=== PATIENT | female | born 1990 | race Caucasian/White ===

== ENCOUNTER 2022-06-20 18:52 | Emergency (ER) | payer BC, MEDICAID, SELFPAY ==
[2022-06-20 19:01] VITALS: BP 97/59; PULSE 95; RESP 16; TEMP 38.8; O2SAT 100; BMI 24.0
[2022-06-20 21:03] VITALS: BP 93/51; PULSE 78; RESP 16; O2SAT 98
--- NOTE | 2022-06-20 21:07 | EX.ED.DYSGE1 ---
HPI History of Present Illness Chief Complaint: Fever Informant: patient Narrative Narrative: Patient's stated that she started to feel feverish last evening. But this morning she has been hot and cold. She has myalgias. She has sore throat congestion. She has a bit of a headache. She has had nausea and vomiting but no abdominal pain. No urinary symptoms. She does not know if she has been exposed to anyone who is ill. She is overall healthy. PFSH PFSH Medical History no medical history Home Medications ondansetron 4 mg disintegrating tablet 4 mg PO Q8H PRN nausea and vomiting #10 tabs 06/20/22 [Rx Last Taken Unknown] Allergy/AdvReac Type Severity Reaction Status Date / Time No Known Allergies Allergy Verified 06/20/22 19:03 Surgical History no surgical history Social History Smoking Status: Never smoker ROS ROS ED Constitutional Constitutional ED: Reports chills and subjective Eyes Eyes: Denies change in vision ENT ENT ED: Reports rhinorrhea and sore throat; Denies ear pain Cardiovascular Cardiovascular: Denies chest pain, palpitations or racing heartbeat Respiratory/Chest Respiratory/Chest: Reports cough; Denies dyspnea or sputum Gastrointestinal Gastrointestinal: Reports nausea and vomiting; Denies abdominal pain or diarrhea Genitourinary Genitourinary ED: Denies dysuria or hematuria Musculoskeletal Musculoskeletal: Reports myalgias Integumentary Denies rash Neurologic Neurologic: Reports headache(s); Denies paresthesias or weakness Endocrine Endocrinology: Denies polydipsia or polyuria Allergic/Immunologic Allergic/Immunologic ED: Denies urticaria EXAM Physical Exam Const Vital Signs: 06/20/22 19:01 06/20/22 21:03 06/20/22 21:03 Temperature 101.8 F H Temperature Source Oral Pulse Rate 95 78 Respiratory Rate 16 16 Respiratory Effort Normal Respiratory Pattern Normal Blood Pressure 97/59 L 93/51 L Blood Pressure Mean 71 65 Pulse Ox 100 98 Oxygen Delivery Method Room Air Positive well nourished and well developed General Appearance ED: well developed HEENT Reports moist mucous membranes; Denies dry mucous membranes Mouth ED: No dry mucous membranes Mouth: No dry mucous membranes Eyes EOMs intact bilaterally General Eye ED: Negative for pale conjunctiva or scleral icterus Neck no lymphadenopathy Neck Narrative: No meningismus. No lymphadenopathy. Chest Wall inspection of chest normal Resp normal respiratory effort and clear to auscultation bilaterally Resp Narrative: Patient states she has been coughing. But her lungs sound clear at this time. She is not coughing while I am in the room. Auscultation: Negative for rales, rhonchi or wheezes Cardio regular rate and regular rhythm GI normal to inspection, nondistended, normoactive bowel sounds Palpation: soft; Negative for tender or guarding Back/Spine no CVA tenderness Extremity normal to inspection General Extremety ED: Negative for edema or tenderness General Extremity: Negative for edema Neuro Sensorium / Orientation: alert; Negative for orientation impaired, lethargic or stuporous Psych mental status grossly normal Skin no rashes or lesions noted MDM MDM MDM Narrative Medical decision making narrative: Patient preferred not having IV fluids. Her mucous membranes are still moist. Heart rate is about 80. I do not think she needs this. I will get her meds for the fever and get Zofran for nausea. We will check COVID. Her symptoms and exam are overall consistent with viral syndrome. Patient's COVID is positive. She is feeling a bit better after the Zofran. We will recheck her temperature. Even if she takes Motrin or Tylenol her temperature may not come down to normal. She is not hypoxic. We will get her home with instructions. We discussed reasons to return. Patient has no high risk illness that would put her in the need for Paxlovid. Lab Data Attestation: I reviewed the patient's lab results. Discharge Plan Triage Chief Complaint: Fever ED Provider: Jack Rea Dx/Rx/DC Orders Clinical Impression: COVID, Nausea and vomiting Instructions: Coronavirus Disease 2019 (COVID-19): Caring for Yourself or Others Prescriptions: New ondansetron 4 mg tablet,disintegrating 4 mg PO Q8H PRN (Reason: nausea and vomiting) Qty: 10 0RF Primary Care Provider: Care Physician,No Primary Referrals: Mau Le MD [Med Staff - Junior Assistant Manager] - 1 Week if not improving Care Physician,No Primary [Primary Care Provider] - Disposition Disposition: Home, Self Care
[2022-06-20] MEDS: Ondansetron ODT 4 MG Tablet PO (21:18)
[2022-06-20] MEDS: Ibuprofen 200 MG Tablet 400 MG PO (21:18)
[2022-06-20 22:44] VITALS: PULSE 87; RESP 16; O2SAT 99
== END 2022-06-20 22:44 | disposition home or self-care (01) ==
PROVIDERS: Emergency Provider Emergency Medicine; Visit Provider Emergency Medicine
DX: U07.1 COVID-19 (principal); R11.2 Nausea with vomiting, unspecified
CPT/HCPCS: 87428; 99283

== ENCOUNTER 2022-07-29 07:11 | Day surgery (SDC) | payer BC, MEDICAID, SELFPAY ==
--- NOTE | 2022-07-14 11:05 | PCM.HP.BLA ---
History and Physical Date of Admission: 07/14/22 HPI: The patient is a 31 year old female presenting for pre-operative visit. She is scheduled for hysteroscopy, polypectomy, for endocervical polyp on 07/29/2022. Procedure discussed along with risks, benefits and complications. Other alternatives discussed for management. Consent form signed? Yes. ? ? PAST MEDICAL HISTORY PAST MEDICAL HISTORY Diagnosis Date ? Anxiety ? ? Vaso vagal episode ? ? ? PAST SURGICAL HISTORY PAST SURGICAL HISTORY Procedure Laterality Date ? MOUTH SURGERY HX ? ? ? VAGINOSCOPY ? ? ? early 20's - benign ? ? ? CURRENT MEDICATIONS No current outpatient medications on file. ? No current facility-administered medications for this visit. ? ? ALLERGIES: Lidocaine and Novacaine [Procaine] ? PERSONAL HISTORY: SOCIAL HISTORY Social History ? Tobacco Use ? Smoking status: Never ? Smokeless tobacco: Never Vaping Use ? Vaping Use: Never used Substance Use Topics ? Alcohol use: Yes ? ? Comment: social ? Drug use: Never ? FAMILY HISTORY: FAMILY HISTORY FAMILY HISTORY Problem Relation Age of Onset ? No Known Problems Mother ? ? Hypertension Father ? ? Hyperlipidemia Father ? ? Obesity Father ? ? Diabetes Brother ? ? No Known Problems Brother ? ? No Known Problems Brother ? ? Hypertension Paternal Grandmother ? ? Hypertension Paternal Grandfather ? ? ? REVIEW OF SYMPTOMS: GENERAL: denies fevers or chills ENDOCRINOLOGY: has not been on steroids Cardiology : denies palpitations or chest pain Respiratory: denies SOB or cough Hematology: denies history of prolonged bleeding or easy bruising or VTE Allergy: Denies history of personal or family history of allergy to anesthesia ? PHYSICAL EXAMINATION: ? VITALS: Last menstrual period 06/24/2022. ? GENERAL: The patient is well nourished, well hydrated in no acute distress. , The patient is oriented to time, place, and person. NECK: Supple. No lynphadenopathy, normal thyroid, no thyromegaly. LUNGS: Clear to auscultation bilaterally. no wheezes, rhonchi or rales HEART: Regular rate and rhythm, Normal heart sounds, and No murmurs or gallops ? IMPRESSION: AUB, endocervical polyp ? PLAN: The risks/benefits/alternatives and personal involved for the planned hysteroscopy D&C with polyp resection were reviewed with the patient. Her questions were answered to her satisfaction and she desires to proceed. Consent was signed. I reviewed with her postop instructions and expectations. ? ? I have reviewed and updated past medical and surgical history, medications and allergies
[2022-07-29] VITALS (9 sets, daily range): BP systolic 91–110; BP diastolic 48–70; PULSE 69–88; RESP 16–18; TEMP 36.4–37.2; O2SAT 93–100; BMI 23.8
--- NOTE | 2022-07-29 | EMB_PTH ---
PATIENT: UMBERTO MEDRANO LOC: [facility] [place] U#:[id number] AGE/SX: 31/F ROOM: RE07/29/[address]: Dr. Alexandria Mason MD : 1990 BED: DIS: 07/29/2022 SPEC #: [id number] RECD: 07/29/22 12:55 STATUS: KRYSTIAN GUTIERREZ #: [id number] JOHN: 07/29/22 00:[address]: Alexandria Mason DEPT: SURGICAL PATHOLOGY RECD BY: Tony Renee ENTERED: 08/01/22 10:04 SP TYPE: ENDOM BX/C JODIE DR: No Primary Care Phys Tissues: Endometrium, NOS Procedures: Surgery Specimen Level IV HEADER OPERATION: Hysteroscopy, D & C PRE-OP DIAGNOSIS: Abnormal uterine bleeding, endocervical polyp TISSUE SUBMITTED: Endometrial curettings MICROSCOPIC DIAGNOSIS Endometrium, curettings: Mildly disordered proliferative endometrium. Chronic endometritis. Fragments of benign squamous mucosa and endocervical tissue. AM:mariann 08/02/2022 MICROSCOPIC DESCRIPTION Slides are reviewed. GROSS DESCRIPTION Received in fixative is one container labeled with the patient's name and designated endometrial curettings. The specimen consists of multiple irregular fragments of light to dark quiros soft tissue that in aggregate measure 5 x 2 x 0.2 cm. The specimen is totally submitted in two cassettes. / AM:mariann 08/01/2022 TC:3 CPT: 24945
[2022-07-29] MEDS: Lidocaine 2% /Epi 1:100 (20ml) 20 ML VIAL (07:56)
[2022-07-29 08:01] LABS: Internal QC Validated? YES +Cl - CLEAR BKGD; Pregnancy, Urine Negative Negative
[2022-07-29] MEDS: Ketorolac 30 MG/ML Syringe IV (08:16)
[2022-07-29] MEDS: Acetaminophen 500 MG Tablet 1000 MG PO (08:16)
[2022-07-29] MEDS: Lactated Ringers 1,000 ML 15 ML IV (08:19)
[2022-07-29 08:30] LABS: Hematocrit 39.9 % (37-47); Hemoglobin 13.1 g/dL (12.0-15.0); Mean Corp Hgb Conc 32.8 g/dL (32-36); Mean Corpuscular Hgb 29.9 pg (27.0-32.0); Mean Corpuscular Volume 91.1 fL (81-99); Mean Platelet Vol. 10.2 fl (6.2-12.0); Platelet Count 323 K/mm3 (150-450); RBC Distribution Width CV 12.1 % (11.6-14.6); RBC Distribution Width SD 40.3 fl (35.1-43.9); Red Blood Count 4.38 M/mm3 (4.2-5.4); White Blood Count 8.8 K/mm3 (4.4-11.0)
--- NOTE | 2022-07-29 08:49 | DCINST_ITS ---
Discharge Instructions Diet Discharge Diet: No restrictions Activity May resume sexual activity in: 1 week and 2 weeks Lifting Restrictions: none Dressing / Incision Call your doctor if your incision/area has: Sudden Increased Bleeding and Foul Smelling Discharge Call your doctor if you observe: Fever of 101 or Higher and Using more than 1 pad per hour (for 2 hrs in a row) Follow Up Care Please Follow Up With: Alexandria Mason MD When: 2-4 weeks or as needed. Call [phone] to make an appointment or with any concerns. Test Results: Test results from this visit will be discussed in further detail at your follow- up appointment, if applicable. Discharge Plan Admission Primary Reason for Your Visit: Hysteroscopy dilation and curettage Attending Provider: Alexandria Mason Primary Care Provider: Care Physician,Kiarra Primary Discharge Orders/Prescriptions Prescriptions: No Action ondansetron 4 mg tablet,disintegrating 4 mg PO Q8H PRN (Reason: nausea and vomiting) Qty: 10 0RF Referrals / Follow Up: Care Physician,No Primary [Primary Care Provider] - Disposition Disposition (needs filled in before D/C Order can be placed): Home, Self Care
--- NOTE | 2022-07-29 08:51 | PCM.OPRPT ---
Problems Associated Problem List Diagnoses (1) Abnormal uterine bleeding (AUB): (2) Endometrial polyp: Report of Operation Date of Procedure: 07/29/22 Pre-Operative Diagnosis: AUB, endometrial polyp Post-Operative Diagnosis: same Surgery/Procedure Performed:: hysteroscopy D&C w/ polyp resection Description of Surgical Findings:: Normal vagina and vulva, normal endometrial cavity with lush endometrium. No discrete polypoid lesions. Somewhat friable ulcerated area at the endocervix posteriorly. But no discrete polyp when I attempted to grasp the area. Surgeon: Alexandria Mason signaling design engineer: rani su ms Type of Anesthesia: MAC/Supplemental/Local Anesthesiologist: Quentin Enamorado Special Medications: none Specimen's removed: endometrial curettings Drains: none Estimated Blood Loss (mL): 10 Fluids Replaced: 800 Description of Procedure: The patient was taken to the OR where she was prepped and draped in dorsal lithotomy position. The weighted speculum was placed in the vagina and the anterior lip of the cervix was grasped with a single-tooth tenaculum. A paracervical block was administered with 2% Xylocaine with dilute epinephrine solution. The cervix was dilated serially with Hegar dilators. The Symphion hysteroscope was placed into the uterine cavity and the above findings were noted. Bilateral tubal ostia [were] identified. There was lush endometrium. No discrete polyps noted in the endometrial cavity. Small area that is somewhat denuded in the endocervix but no discrete polyp there. The hysteroscope was removed. A gentle sharp curettage was done of the uterine cavity. The instruments were removed from the vagina. The specimen was handed off and sent to pathology. All sponge and needle counts were correct. Vaginal sweep was performed by me. The patient was awakened and taken to the recovery room in stable condition. Hysteroscopic fluid deficit was calculated to be 0 cc Grafts/Implants Used: none Procedure Start Time: :02 Procedure Stop Time: 09:10 Complications none Admit VTE Documentation VTE Present on Admission: No VTE Mechan Device Prophylaxis: SCD's VTE Pharm Prophylaxis ordered?: No Reason prophylaxis not ordered:: Procedure Not Indicated
== END 2022-07-29 12:11 | disposition home or self-care (01) ==
LOC: SDC 07:14 → AC 07:15
PROVIDERS: Referring Provider Obstetrics & Gynecology; Visit Provider Obstetrics & Gynecology
PROC: 0UB98ZZ Excision of Uterus, Via Natural or Artificial Opening Endoscopic (ICD-10-PCS; CPT 58558; principal; 2022-07-29 08:25)
DX: N71.1 Chronic inflammatory disease of uterus (principal); N93.9 Abnormal uterine and vaginal bleeding, unspecified; N84.0 Polyp of corpus uteri; F12.90 Cannabis use, unspecified, uncomplicated
CPT/HCPCS: 58558; 00952; 81025; 85027; 88305; J7120; J2405

== ENCOUNTER 2022-08-19 00:58 | Emergency (ER) | payer BC, MEDICAID, SELFPAY ==
[2022-08-19 00:59] VITALS: BP 94/47; PULSE 78; RESP 15; TEMP 35.7; O2SAT 98; BMI 24.2
[2022-08-19 01:06] VITALS: O2SAT 99
--- NOTE | 2022-08-19 01:12 | RAD_ITS ---
STUDY: X-RAY CHEST REASON FOR EXAM: Female, 31 years old. sob TECHNIQUE: Frontal and lateral views of the chest. COMPARISON: None. FINDINGS: The lungs are clear and expanded. There is no demonstrated pleural abnormality. Normal size heart. Normal mediastinum and evaristo. Normal visualized pulmonary arteries. Normal visualized aortic arch and descending thoracic aorta. Normal visualized thoracic spine. Normal visualized ribs, clavicles, and shoulders. There is no demonstrated abnormality of the visualized soft tissue structures of the upper abdomen. RAD/Chest PA and Lateral IMPRESSION: Normal x-ray examination of the chest. Electronically Signed: Efrain Carnes MD at 2:11 EST ,
[2022-08-19] MEDS: LORazepam 0.5 MG Tablet PO (01:26)
--- NOTE | 2022-08-19 01:30 | EDS_ITS ---
HPI History of Present Illness Chief Complaint: Shortness of Breath Narrative Narrative: Feels likePatient started having dyspnea at work, it is hard to catch a deep breath. She has no chest pain she has no back pain or tearing sensation. She has no lower extremity edema or calf pain. She did have surgery for a polyp removal about 3 weeks ago. No upper airway congestion rhinorrhea or myalgias. No fevers or chills. [facility] Medical History Abnormal uterine bleeding (AUB) Anxiety COVID Endometrial polyp Marijuana use Non-smoker Vaso vagal episode Allergy/AdvReac Type Severity Reaction Status Date / Time No Known Allergies Allergy Verified 07/29/22 08:00 Surgical History History of surgery of head History of wisdom tooth extraction Social History Smoking Status: Never smoker ROS ROS ED ROS Narrative Past medical history: Reviewed Medications: Reviewed Social history: Noncontributory Review of systems: All systems negative except as indicated General: No fever Eyes: No visual changes ENT: No upper airway congestion, normal voice Neck: No neck pain Cardiovascular: No chest pain Respiratory: As in HPI Gastrointestinal: No abdominal pain, nausea vomiting or diarrhea Genitourinary: No dysuria Musculoskeletal: Denies myalgias no difficulty with ambulation Skin: No rash Neurological: No memory loss, confusion or any focal weakness Psych: No recent behavioral changes Hematologic: No easy bleeding or easy bruising EXAM Physical Exam Narrative Exam Narrative: Physical exam General: Well nourished, Well developed, No Acute Distress Head: Normocephalic, Atraumatic Eyes: Conjunctiva not pale ENT: Moist mucous membranes Neck: Supple, Nontender, No lymphadenopathy Cardiovascular: Regular rate, Regular rhythm Respiratory: No distress, CTA bilaterally Abdomen: Soft, Nontender, Nondistended Back: Nontender, Normal Inspection. Negative for: CVA tenderness Extremities: Nontender, No edema Skin: Normal color, No rash Neurological: Alert, Normal Strength, Normal Sensation Psychological: Normal affect Const Vital Signs: 08/19/22 00:59 08/19/22 01:06 Temperature 96.3 F L Temperature Source Temporal Pulse Rate 78 Respiratory Rate 15 Respiratory Effort Short of Breath Respiratory Depth Normal Respiratory Pattern Normal Blood Pressure 94/47 L Blood Pressure Mean 62 Pulse Ox 98 Oxygen Delivery Method Room Air Room Air MDM MDM MDM Narrative Medical decision making narrative: Patient's work-up is unremarkable. There is no evidence of thromboembolic disease or any cardiac etiology. Patient is reassured she appears well I will discharge her in stable condition. Lab Data Labs: Laboratory Results - last 24 hr 08/19/22 08/19/22 08/19/22 02:40 02:40 02:40 WBC 7.4 RBC 4.51 Hgb 13.4 Hct 41.3 MCV 91.6 MCH 29.7 MCHC 32.4 RDW Std Deviation 40.6 RDW Coeff of Roxanne 12.2 Plt Count 313 MPV 9.9 Immature Gran % (Auto) 0.300 Neut % (Auto) 58.0 Lymph % (Auto) 25.9 Owen % (Auto) 8.0 Eos % (Auto) 7.1 H Baso % (Auto) 0.7 Absolute Neuts (auto) 4.3 Absolute Lymphs (auto) 1.92 Nucleated RBC % 0 D-Dimer Quant (PE/DVT) < 0.27 L Sodium 138 Potassium 3.8 Chloride 105 Carbon Dioxide 28.0 Anion Gap 5 BUN 13 Creatinine 0.88 Estim Creat Clear Calc 75.22 Est GFR (MDRD) Af Amer 95 Est GFR (MDRD) Non-Af 79 BUN/Creatinine Ratio 14.8 Glucose 92 Calcium 9.0 Total Bilirubin 0.30 AST 21 ALT 27 Alkaline Phosphatase 71 Troponin I High Sens 14 Total Protein 7.0 Albumin 3.8 Globulin 3.2 Albumin/Globulin Ratio 1.2 Radiography Diagnostic Testing: Clinical Impression(s) from Imaging Studies Chest X-Ray 08/19/22 01:12 IMPRESSION: Normal x-ray examination of the chest. Electronically Signed: Efrain Carnes MD at 2:11 EST Reading Location ID and State: [facility] / [place] Tel , Service support , EKG Initial EKG: Comments: Sinus rhythm with a rate of 63. Normal AK and QTc intervals. No ischemic changes. Normal EKG Interpreted by emergency Dr. Discharge Plan Triage Chief Complaint: Shortness of Breath ED Provider: Santiago Ugalde Dx/Rx/DC Orders Clinical Impression: Acute dyspnea Instructions: ED Dyspnea Primary Care Provider: Care Physician,No Primary Referrals: Care Physician,No Primary [Primary Care Provider] - 3-5 Days Disposition Disposition: Home, Self Care
--- NOTE | 2022-08-19 02:00 | ED.RN ---
Pt. refuses to have an IV or have blood drawn despite PO ativan.
[2022-08-19 02:56] LABS: Absolute Lymphocyte Count 1.92 X10^3/uL (0.83-4.51); Absolute Neutrophil Count 4.3 X10^3/uL (2.0-7.7); Basophil# 0.05 X10^3/uL; Basophil% 0.7 % (0-1); Eosinophil# 0.53 X10^3/uL; Eosinophils% 7.1 % (0-5); Hematocrit 41.3 % (37-47); Hemoglobin 13.4 g/dL (12.0-15.0); Lymphocyte # 1.92 X10^3/ul (0.83-4.51); Lymphocyte % 25.9 % (19-41); Mean Corp Hgb Conc 32.4 g/dL (32-36); Mean Corpuscular Hgb 29.7 pg (27.0-32.0); Mean Corpuscular Volume 91.6 fL (81-99); Mean Platelet Vol. 9.9 fl (6.2-12.0); Monocyte# 0.59 X10^3/uL; NRBC Flagged by Analyzer 0 % (0-5); Neutrophil # 4.31 X10^3/uL (2.7-7.7); Platelet Count 313 K/mm3 (150-450); RBC Distribution Width CV 12.2 % (11.6-14.6); RBC Distribution Width SD 40.6 fl (35.1-43.9); Red Blood Count 4.51 M/mm3 (4.2-5.4); White Blood Count 7.4 K/mm3 (4.4-11.0)
[2022-08-19 03:14] LABS: D-Dimer Quantitative (DVT/PE) < 0.27 FEU/ug/m (0.27-0.49)
[2022-08-19 03:16] LABS: ALB/GLOB Ratio 1.2 RATIO (0.9-2.4); AST(SGOT) 21 U/L (15-37); Alanine Aminotransfer ALT/SGPT 27 U/L (13-56); Albumin, Serum 3.8 g/dL (3.2-5.0); Alkaline Phosphatase 71 U/L (45-117); Anion Gap 5 (5-15); BUN 13 mg/dL (7-18); BUN/Creat Ratio 14.8 RATIO (10-20); Chloride 105 mmol/L (98-107); Creatinine, Serum 0.88 mg/dL (0.55-1.02); EST Glomerular Filtration Rate 79 mL/min (>60); Est Glom Filt Rate - Afr Amer 95 mL/min (>60); Estimated Creatinine Clearance 75.22 ml/min; Globulin 3.2 g/dL (2.2-4.2); Glucose 92 mg/dL (74-106); Potassium 3.8 mmol/L (3.5-5.1); Sodium Level 138 mmol/L (136-145); Troponin-I HS 14 pg/mL (3.0-54.0)
[2022-08-19 03:32] VITALS: BP 107/59; PULSE 62; RESP 15; O2SAT 99
== END 2022-08-19 03:34 | disposition home or self-care (01) ==
PROVIDERS: Emergency Provider Emergency Medicine; Visit Provider Emergency Medicine
DX: R06.00 Dyspnea, unspecified (principal)
CPT/HCPCS: 99281; 71046; 80053; 84484; 85025; 85379; 93005; 99282